=== PATIENT | female | born 1975 | race Caucasian/White ===

== ENCOUNTER → 2018-04-18 | Outpatient (CLI) | payer BC ==
[~2018-04-18] MED LIST: PERCOCET 5-3251 EACH PO; PROZAC20 MG PO
== END ==
LOC: M.CT 07:32
DX: S82.142D Displaced bicondylar fracture of left tibia, subsequent encounter for closed fracture with routine healing (principal); M17.12 Unilateral primary osteoarthritis, left knee; M25.462 Effusion, left knee; X58.XXXD Exposure to other specified factors, subsequent encounter

== ENCOUNTER → 2018-05-22 | Outpatient (CLI) | payer BC ==
[2018-05-22 12:08] LABS: HEMATOCRIT 38.2 % (37.0-47.0); HEMOGLOBIN 12.8 gm/dL (12.0-15.0); MCHC 33.5 g/dL (28.0-37.0); MCV 95.8 fL (80.0-100.0); MPV 7.1 fl. (7.2-11.1); RBC 3.99 mil/uL (4.20-5.00); RDW-CV 13.3 % (10.5-14.5); WBC 5.2 thou/uL (4.0-11.0)
[2018-05-22 12:23] LABS: ALBUMIN 3.3 g/dL (3.4-5.0); CALCIUM 8.7 mg/dL (8.5-10.1); CREATININE 0.7 mg/dL (0.6-1.3); POTASSIUM 4.3 mmol/L (3.5-5.1); TOTAL BILIRUBIN 0.4 mg/dL (<0.1-1.0); TOTAL PROTEIN 6.7 g/dL (6.4-8.2)
== END ==
LOC: M.LAB 11:50
PROVIDERS: Anesthesiology
DX: Z01.812 Encounter for preprocedural laboratory examination (principal)

== ENCOUNTER 2018-07-20 11:23 | Emergency (ER) | payer BC ==
[~2018-07-20] VITALS: Ht 172.7 cm; Wt 82.6 kg
[2018-07-20] MEDS ORDERED: HYDROCODON-ACE1 EA11 PO (11:35)
[2018-07-20] MEDS ORDERED: NAPROSYN500 MG PO (13:06)
[2018-07-20 13:20] VITALS: BP 147/100
== END 2018-07-20 13:21 | disposition home or self-care (01) ==
LOC: M.ERS 11:23
DX: M53.3 Sacrococcygeal disorders, not elsewhere classified (principal); F32.9 Major depressive disorder, single episode, unspecified; Z88.5 Allergy status to narcotic agent

== ENCOUNTER → 2018-12-27 | Outpatient (CLI) | payer BC ==
[~2018-12-27] MED LIST changes: +HYDROCODON-ACE1 EA11 PO; +NAPROSYN500 MG PO
== END ==
LOC: M.RAD 13:40
DX: Z12.31 Encounter for screening mammogram for malignant neoplasm of breast (principal)

== ENCOUNTER 2019-01-30 08:59 | Emergency (ER) | payer BC ==
[~2019-01-30] VITALS: Ht 172.7 cm; Wt 78.5 kg
[2019-01-30] MEDS ORDERED: DEPRESSION PO (09:13)
[2019-01-30] MEDS ORDERED: CIPROFLOXIN HC2.5 M1 OPHTHALMIC (09:25)
[2019-01-30 09:37] VITALS: BP 130/89
== END 2019-01-30 09:39 | disposition home or self-care (01) ==
LOC: M.ERS 08:59
DX: H10.9 Unspecified conjunctivitis (principal); Z88.5 Allergy status to narcotic agent; F32.9 Major depressive disorder, single episode, unspecified